=== PATIENT | male | born 1970 | race Asian ===

== ENCOUNTER 2017-06-28 02:29 | Emergency (ER) | payer OTHER ==
[2017-06-28] MEDS: DIPHTH/TET/ACEL PERTUSS (ADULT) 0.5 ML VIAL IM* (03:45)
== END 2017-06-28 06:02 | disposition home or self-care (01) ==
LOC: FTE 06:02
DX: S20.212A Contusion of left front wall of thorax, initial encounter (principal); S00.83XA Contusion of other part of head, initial encounter; S39.012A Strain of muscle, fascia and tendon of lower back, initial encounter; S16.1XXA Strain of muscle, fascia and tendon at neck level, initial encounter; V89.2XXA Person injured in unspecified motor-vehicle accident, traffic, initial encounter; Z23 Encounter for immunization
CPT/HCPCS: 70450; 70486; 71100; 72125; 90471; 90715; 99285-25